=== PATIENT | female | born 1980 | race Caucasian/White ===

== ENCOUNTER 2018-01-30 09:40 | Emergency (ER) | payer OTHER, BC ==
[2018-01-30 11:50] LABS: VENOUS BASE EXCESS -6.1 (-2.0-2.0); VENOUS HCO3 23.7 MEQ/L (23.0-27.0); VENOUS O2 SATURATION 55.1 % (60.0-80.0); VENOUS PARTIAL PRESSURE CO2 67.4 mmHg (38.0-50.0); VENOUS PARTIAL PRESSURE O2 36.5 mmHg (30.0-50.0); VENOUS PH 7.164 UNITS (7.330-7.430); VENOUS STANDARD HCO3 18.6 MEQ/L; VENOUS TOTAL CO2 25.8 MEQ/L (24.0-28.0)
[2018-01-30 11:53] LABS: BASO % 0.5 % (0.0-1.0); EOS # 0.2 10^3/uL (0.0-0.50); EOS % 2.3 % (0.0-3.0); HEMATOCRIT 39.1 % (36.0-47.0); HEMOGLOBIN 12.8 g/dl (12.0-15.5); IMMATURE GRANULOCYTE % 0.5 % (0-3.0); LYMPH # 2.2 10^3/uL (1.5-4.5); LYMPH % 26.9 % (24.0-44.0); MEAN CORPUSCULAR HEMOGLOBIN 29.4 pg (27.0-33.0); MEAN CORPUSCULAR HGB CONC 32.7 g/dl (32.0-36.5); MEAN CORPUSCULAR VOLUME 89.9 fl (80.0-96.0); MONO # 0.7 10^3/uL (0.0-0.8); MONO % 8.5 % (0.0-5.0); NEUTROPHILS % 61.3 % (36.0-66.0); PLATELET COUNT, AUTOMATED 288 10^3/uL (150-450); RED BLOOD COUNT 4.35 10^6/uL (4.00-5.40); RED CELL DISTRIBUTION WIDTH 13.3 % (11.5-14.5); WHITE BLOOD COUNT 8.1 10^3/uL (4.0-10.0)
[2018-01-30 12:03] LABS: CONTROL LINE HCG INT CTR LINE PRESENT; HCG, SERUM QUALITATIVE NEGATIVE (NEGATIVE)
[2018-01-30 12:07] LABS: ANION GAP 7 MEQ/L (8-16); BLOOD UREA NITROGEN 10 MG/DL (7-18); CALCIUM LEVEL 9.4 MG/DL (8.5-10.1); CARBON DIOXIDE LEVEL 30 MEQ/L (21-32); CHLORIDE LEVEL 108 MEQ/L (98-107); CREATININE FOR GFR 0.97 MG/DL (0.55-1.30); GLOMERULAR FILTRATION RATE > 60.0 (>60); GLUCOSE, FASTING 102 MG/DL (70-100); POTASSIUM SERUM 3.9 MEQ/L (3.5-5.1); SODIUM LEVEL 145 MEQ/L (136-145)
[2018-01-30 12:09] LABS: D-DIMER QUANT 422.3 ng/ml (<500)
[2018-01-30] MEDS: IPRATROPIUM 0.5MG/ALBUTEROL 2.5MG INH SOL UD 3ML (DUONEB)(J7620) NEB (13:02)
[2018-01-30] MEDS: KETOROLAC 30 MG/ML VIAL (J1885) IV (13:03)
== END 2018-01-30 13:35 | disposition home or self-care (01) ==
LOC: M ED 09:40
DX: R06.02 Shortness of breath (principal); R06.4 Hyperventilation; R00.0 Tachycardia, unspecified; R94.31 Abnormal electrocardiogram [ECG] [EKG]; J30.2 Other seasonal allergic rhinitis; J45.909 Unspecified asthma, uncomplicated; Z79.899 Other long term (current) drug therapy; Z88.0 Allergy status to penicillin; Z91.89 Other specified personal risk factors, not elsewhere classified
CPT/HCPCS: J1885

== ENCOUNTER 2021-02-15 11:37 | Emergency (ER) | payer OTHER ==
[~2021-02-15] VITALS: Ht 167.6 cm; Wt 123.0 kg
[~2021-02-15 11:37] MED LIST: FLON1SPR; KETO10TAB PO; KLONIPIN PO; VENTAER IN; WELLTAB38 PO; duoneb NEB
[2021-02-15] MEDS ORDERED: ATOM80CA6 (12:20)
[2021-02-15] MEDS ORDERED: DULO1CAP6 (12:20)
[2021-02-15] MEDS ORDERED: TRAZ-189 (12:20)
[2021-02-15] MEDS ORDERED: DULO1CAP5 (12:20)
[2021-02-15] MEDS ORDERED: HYDR50TA70 (12:20)
[2021-02-15] MEDS ORDERED: BUSP15TA47 (12:20)
[2021-02-15] MEDS ORDERED: ALBUTEROL SULFATE 2.5 MG/0.5 ML INH NEB SOLN NEB ONE (12:30)
--- NOTE | 2021-02-15 12:44 | REP ---
INDICATION: CHEST PAIN COMPARISON: 12/08/2015 TECHNIQUE: Portable AP view of the chest FINDINGS: The mediastinum and cardiac silhouette are stable and within normal limits for portable technique. The lung carranza are clear without acute consolidation, effusion, or pneumothorax. Skeletal structures are intact. IMPRESSION: No acute cardiopulmonary process appreciated. <Electronically signed by Roberto Miguel > 02/15/21 [id number]
[2021-02-15 13:26] LABS: BASO % 0.5 % (0.0-1.0); EOS # 0.1 10^3/uL (0.0-0.5); EOS % 1.5 % (0.0-3.0); HEMATOCRIT 42.4 % (36.0-47.0); LYMPH % 24.4 % (24.0-44.0); MEAN CORPUSCULAR HEMOGLOBIN 29.9 pg (27.0-33.0); MEAN CORPUSCULAR VOLUME 90.6 fl (80.0-96.0); MONO # 0.6 10^3/uL (0.0-0.8); MONO % 7.2 % (2.0-8.0); NEUTROPHILS # 5.4 10^3/uL (1.5-8.5); PLATELET COUNT, AUTOMATED 254 10^3/uL (150-450); RED BLOOD COUNT 4.68 10^6/uL (4.00-5.40); WHITE BLOOD COUNT 8.2 10^3/uL (4.0-10.0)
[2021-02-15 13:50] LABS: BLOOD UREA NITROGEN 10 MG/DL (7-18); CALCIUM LEVEL 9.3 MG/DL (8.5-10.1); CARBON DIOXIDE LEVEL 26 MEQ/L (21-32); CHLORIDE LEVEL 107 MEQ/L (98-107); GLOMERULAR FILTRATION RATE > 60.0 (>60); GLUCOSE, FASTING 74 MG/DL (70-100); POTASSIUM SERUM 4.4 MEQ/L (3.5-5.1); SODIUM LEVEL 140 MEQ/L (136-145)
[2021-02-15 15:41] LABS: CK-MB VALUE MASS < 1.0 NG/ML (<3.6); CPK CREATINE PHOSPHOKINASE 69 U/L (26-192); MB/CK RELATIVE INDEX 1.45 (< OR =4); TROPONIN I < 0.02 NG/ML (< 0.10)
[2021-02-15 15:53] VITALS: BP 128/58
--- NOTE | 2021-02-16 10:58 | ECGEPIP ---
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
--- NOTE | 2021-02-17 17:50 | ECGEPIP ---
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
== END 2021-02-15 16:01 | disposition home or self-care (01) ==
LOC: M ED 11:37 → EDBD 11:37 → M ED 16:01
DX: R07.9 Chest pain, unspecified (principal); F43.0 Acute stress reaction; F41.9 Anxiety disorder, unspecified; J45.909 Unspecified asthma, uncomplicated; Z79.51 Long term (current) use of inhaled steroids; Z79.899 Other long term (current) drug therapy; Z88.0 Allergy status to penicillin; Z91.048 Other nonmedicinal substance allergy status

== ENCOUNTER 2021-11-04 14:01 | Emergency (ER) | payer OTHER ==
[~2021-11-04] VITALS: Ht 170.2 cm; Wt 113.6 kg
[~2021-11-04 14:01] MED LIST changes: +ATOM80CA6; +BUSP15TA47 PO; +DULO1CAP5; +DULO1CAP6; +HYDR50TA70; +TRAZ-189
[2021-11-04] MEDS ORDERED: ALBU83IN NEB (14:14)
[2021-11-04 15:07] LABS: BASO % 0.4 % (0.0-1.0); EOS # 0.1 10^3/uL (0.0-0.5); EOS % 1.4 % (0.0-3.0); HEMATOCRIT 41.3 % (36.0-47.0); HEMOGLOBIN 13.9 g/dl (12.0-15.5); LYMPH # 2.7 10^3/uL (1.5-5.0); LYMPH % 29.6 % (24.0-44.0); MEAN CORPUSCULAR HEMOGLOBIN 30.3 pg (27.0-33.0); MEAN CORPUSCULAR HGB CONC 33.7 g/dl (32.0-36.5); MEAN CORPUSCULAR VOLUME 90.2 fl (80.0-96.0); MONO # 0.6 10^3/uL (0.0-0.8); MONO % 6.7 % (2.0-8.0); NEUTROPHILS # 5.6 10^3/uL (1.5-8.5); NEUTROPHILS % 61.6 % (36.0-66.0); PLATELET COUNT, AUTOMATED 296 10^3/uL (150-450); RED BLOOD COUNT 4.58 10^6/uL (4.00-5.40)
[2021-11-04 15:32] LABS: INR 0.97; PROTHROMBIN TIME 13.3 SECONDS (12.7-14.5)
[2021-11-04 15:33] LABS: PARTIAL THROMBOPLASTIN TIME 28.7 SECONDS (25.9-37.0)
[2021-11-04 15:37] LABS: CK-MB VALUE MASS < 1.0 NG/ML (<3.6); CPK CREATINE PHOSPHOKINASE 80 U/L (26-192); MB/CK RELATIVE INDEX 1.25 (< OR =4)
[2021-11-04 15:37] LABS: ALBUMIN 3.9 GM/DL (3.2-5.2); ALT/SGPT 29 U/L (12-78); BILIRUBIN,DIRECT < 0.1 MG/DL (0.0-0.2); BILIRUBIN,TOTAL 0.8 MG/DL (0.2-1.0); BLOOD UREA NITROGEN 11 MG/DL (7-18); CALCIUM LEVEL 9.1 MG/DL (8.5-10.1); CARBON DIOXIDE LEVEL 26 MEQ/L (21-32); CHLORIDE LEVEL 107 MEQ/L (98-107); CREATININE FOR GFR 0.92 MG/DL (0.55-1.30); GLOMERULAR FILTRATION RATE > 60.0 (>58); GLUCOSE, FASTING 80 MG/DL (70-100); POTASSIUM SERUM 4.9 MEQ/L (3.5-5.1); SODIUM LEVEL 137 MEQ/L (136-145); TOTAL PROTEIN 7.3 GM/DL (6.4-8.2)
[2021-11-04] MEDS ORDERED: KETOROLAC 30 MG/ML 1ML VIAL IV ONE (15:55)
[2021-11-04] MEDS ORDERED: ISOVUE-370 76% 100ML VIAL As Ordered ONE (15:58)
[2021-11-04 16:51] LABS: CK-MB VALUE MASS < 1.0 NG/ML (<3.6); CPK CREATINE PHOSPHOKINASE 69 U/L (26-192); MB/CK RELATIVE INDEX 1.45 (< OR =4)
[2021-11-04 17:04] LABS: HCG, SERUM QUALITATIVE NEGATIVE (NEGATIVE)
[2021-11-04] MEDS ORDERED: KETO10TAB PO (17:37)
[2021-11-04 18:07] VITALS: BP 114/90
== END 2021-11-04 18:10 | disposition home or self-care (01) ==
LOC: M ED 14:01 → EDBD 14:01 → M ED 18:10
DX: R07.9 Chest pain, unspecified (principal); J45.909 Unspecified asthma, uncomplicated; F32.A Depression, unspecified; Z79.51 Long term (current) use of inhaled steroids; Z79.899 Other long term (current) drug therapy
CPT/HCPCS: 71045; 71275; 80048; 80076; 82550; 82553; 84703; 85025; 85610; 85730; 93005; 93041; 93971; 94760; 96374; 99285; J1885; Q9967